=== PATIENT | male | born 1990 | race African-American/Black ===

== ENCOUNTER 2016-08-24 19:26 | Emergency (ER) | payer SELFPAY ==
[~2016-08-24] VITALS: Ht 177.8 cm; Wt 118.0 kg
[2016-08-24] MEDS ORDERED: TRAMADOL HYDROC50 MG PO (20:53)
[2016-08-24] MEDS ORDERED: MOTRIN800 MG PO (20:53)
[2016-08-24 21:05] VITALS: BP 150/78
== END 2016-08-24 21:05 | disposition home or self-care (01) | DRG 313 ==
LOC: ED 19:26
DX: R07.89 Other chest pain (principal); X58.XXXA Exposure to other specified factors, initial encounter; Y93.B9 Activity, other involving muscle strengthening exercises; Y92.39 Other specified sports and athletic area as the place of occurrence of the external cause

== ENCOUNTER 2017-01-09 13:59 | Emergency (ER) | payer OTHER ==
[~2017-01-09] VITALS: Ht 177.8 cm; Wt 110.0 kg
[~2017-01-09 13:59] MED LIST: MOTRIN800 MG PO; TRAMADOL HYDROC50 MG PO
[2017-01-09 16:23] LABS: HEMATOCRIT 47.2 % (39.0-50.0); HEMOGLOBIN 15.4 g/dl (14.0-18.0); IMMATURE GRANULOCYTES 0.3 % (0.0-1.0); MEAN CELL VOLUME 86.1 fL CALC (80.0-100.0); MEAN CORPUSCULAR HGB 28.1 pG CALC (26.0-32.0); MEAN CORPUSCULAR HGB CONC 32.6 g/L CALC (32.0-36.0); NEUT# 3.36 thou/uL (1.82-7.42); RED BLOOD COUNT 5.48 mill/uL (4.70-6.10); RED CELL DISTRI WIDTH 13.2 % (11.5-15.5)
[2017-01-09 16:44] LABS: ALBUMIN 4.9 g/dL (3.2-5.0); ALKALINE PHOSPHATASE 94 u/l (38-126); ANION GAP 15 (6-22 (CALC)); BILIRUBIN, TOTAL 0.8 mg/dL (0.0-1.4); BUN 12 mg/dL (9-20); BUN/CREATININE RATIO 9 (12-20 (CALC)); CARBON DIOXIDE 30 mmol/l (22-30); CHLORIDE 103 mmol/l (95-108); CREATININE 1.3 mg/dL (0.7-1.3); GFR > 60 ML/MIN (>=60 (CALC)); GFR FOR AFR.AMER. > 60 ML/MIN (>=60 (CALC)); GLUCOSE 92 mg/dL (75-110); POTASSIUM 4.7 mmol/l (3.5-5.1); SGOT/AST 92 u/l (17-59); SGPT/ALT 86 u/l (21-72); SODIUM 143 mmol/l (137-146); TOTAL PROTEIN 8.3 g/dL (6.3-8.2)
[2017-01-09] MEDS ORDERED: CRIXIVAN400 MG PO (18:00)
[2017-01-09] MEDS ORDERED: COMBIVIR 1501 COMBO PO (18:00)
[2017-01-09 18:20] VITALS: BP 139/89
== END 2017-01-09 18:23 | disposition home or self-care (01) | DRG 605 ==
LOC: ED 13:59
PROVIDERS: Emergency Medicine
DX: S40.812A Abrasion of left upper arm, initial encounter (principal); Z20.6 Contact with and (suspected) exposure to human immunodeficiency virus [HIV]; W50.4XXA Accidental scratch by another person, initial encounter; Y93.89 Activity, other specified; Y92.149 Unspecified place in prison as the place of occurrence of the external cause

== ENCOUNTER 2017-03-19 12:31 | Emergency (ER) | payer OTHER ==
[~2017-03-19] VITALS: Ht 177.8 cm; Wt 121.8 kg
[~2017-03-19 12:31] MED LIST changes: +COMBIVIR 1501 COMBO PO; +CRIXIVAN400 MG PO
[2017-03-19] MEDS ORDERED: MOTRIN200 MG PO (12:41)
[2017-03-19] MEDS ORDERED: TORADOL PO (13:22)
[2017-03-19] MEDS ORDERED: FLEXERIL PO (13:22)
[2017-03-19 13:30] VITALS: BP 133/78
== END 2017-03-19 13:30 | disposition home or self-care (01) | DRG 563 ==
LOC: ED 12:31
DX: S39.012A Strain of muscle, fascia and tendon of lower back, initial encounter (principal); X50.3XXA Overexertion from repetitive movements, initial encounter; Y93.B3 Activity, free weights; Y92.89 Other specified places as the place of occurrence of the external cause

== ENCOUNTER 2021-05-27 17:09 | Emergency (ER) | payer SELFPAY ==
[~2021-05-27] VITALS: Ht 177.8 cm; Wt 86.0 kg
[~2021-05-27 17:09] MED LIST changes: +FLEXERIL PO; +MOTRIN200 MG PO; +TORADOL PO
[2021-05-27 17:18] VITALS: BP 161/101
[2021-05-27 17:19] VITALS: BP 150/95
[2021-05-27 17:47] LABS: URINE BILIRUBIN - DIPSTICK NEGATIVE (NEGATIVE); URINE BLOOD DIPSTICK NEGATIVE (NEGATIVE); URINE COLOR YELLOW; URINE GLUCOSE - DIPSTICK NEGATIVE (NEGATIVE); URINE KETONE NEGATIVE (NEGATIVE); URINE LEUK ESTERASE NEGATIVE (NEGATIVE); URINE NITRITE - DIPSTICK NEGATIVE (Negative); URINE PROTEIN - DIPSTICK NEGATIVE (NEG-TRACE); URINE UROBILINOGEN - DIPSTICK 0.2 E.U./dL (0.2)
[2021-05-27 18:37] VITALS: BP 150/95
== END 2021-05-27 18:43 | disposition home or self-care (01) | DRG 951 ==
LOC: ED 17:09
PROVIDERS: Nurse Practitioner
DX: Z20.2 Contact with and (suspected) exposure to infections with a predominantly sexual mode of transmission (principal)

== ENCOUNTER 2021-08-24 04:15 | Emergency (ER) | payer SELFPAY ==
[~2021-08-24] VITALS: Ht 180.3 cm; Wt 90.0 kg
[2021-08-24 05:26] LABS: HEMATOCRIT 48.7 % (39.0-50.0); HEMOGLOBIN 15.9 g/dl (14.0-18.0); IMMATURE GRANULOCYTES 0.3 % (0.0-5.0); MEAN CELL VOLUME 88.4 fL CALC (80.0-100.0); MEAN CORPUSCULAR HGB 28.9 pG CALC (26.0-32.0); MEAN CORPUSCULAR HGB CONC 32.6 g/dL CAL (32.0-36.0); NEUT# 4.99 thou/uL (1.82-7.42); RED BLOOD COUNT 5.51 mill/uL (4.70-6.10); RED CELL DISTRI WIDTH 12.9 % (11.5-15.5)
[2021-08-24 05:32] LABS: ALBUMIN 4.5 g/dL (3.2-5.0); ALKALINE PHOSPHATASE 94 u/l (38-126); ANION GAP 12 (6-22 (CALC)); BILIRUBIN, TOTAL 0.9 mg/dL (0.0-1.4); BUN 10 mg/dL (9-20); BUN/CREATININE RATIO 8 (12-20 (CALC)); CARBON DIOXIDE 25 mmol/l (22-30); CHLORIDE 107 mmol/l (95-108); CPK 482 u/l (52-200); CREATININE 1.3 mg/dL (0.7-1.3); GFR FOR AFR.AMER. > 60 ML/MIN (>=60 (CALC)); GFR OTHER RACES > 60 ML/MIN (>=60 (CALC)); MAGNESIUM 1.7 mg/dL (1.6-2.3); SGOT/AST 44 u/l (17-59); SODIUM 140 mmol/l (137-146); TOTAL PROTEIN 7.9 g/dL (6.3-8.2)
[2021-08-24 05:39] VITALS: BP 134/80
[2021-08-24 06:00] VITALS: BP 138/76
[2021-08-24 06:03] LABS: TSH, 3RD GENERATION 0.49 uIU/mL (0.47 - 4.68)
[2021-08-24 06:30] VITALS: BP 121/61
[2021-08-24] MEDS ORDERED: AMLODIPINE BESYL5 MG PO (06:48)
[2021-08-24 07:00] VITALS: BP 121/61
== END 2021-08-24 07:10 | disposition home or self-care (01) | DRG 304 ==
LOC: ED 04:15
PROVIDERS: Family Medicine
DX: I10 Essential (primary) hypertension (principal); U07.1 COVID-19; M54.50 Low back pain, unspecified; T46.1X6A Underdosing of calcium-channel blockers, initial encounter; Z91.128 Patient's intentional underdosing of medication regimen for other reason